=== PATIENT | female | born 1955 | race Caucasian/White ===

== ENCOUNTER 2019-01-15 19:52 | Emergency (ER) | payer SELFPAY ==
[2019-01-15] MEDS ORDERED: DEXAMETHASONE 4 MG/ML VIAL ONE (21:06)
--- NOTE | 2019-01-15 21:10 | EDPHYS ---
Physician Documentation [facility] Name: Giovanni Isaac Age: 63 yrs Sex: Female : 1955 Arrival Date: 01/15/2019 Time: 19:55 Bed 11 Private MD: Clint Edge S ED Physician Blas Dolan HPI: 01/15 20:44 This 63 yrs old Female presents to ER via Ambulatory with complaints of Rash. jmm 20:44 The patient's rash thought to be caused by Dermatitis. Onset: The symptoms/episode jmm began/occurred gradually, 5 day(s) ago. Associated signs and symptoms: Pertinent positives: itching, Pertinent negatives: difficulty breathing, fever, swelling of lips, swelling of throat, swelling of tongue, vomiting. This is a 63 year old female with a history of dm that presents to the ED with complaints of rash due to poison oak. Patient has used OTD medication with no relief. Denies shortness of breath, vomiting, swelling. . Historical: - Allergies: 20:18 iv dye iodine; aj1 - Home Meds: 20:18 levothyroxine 112 mcg tab once daily [Active]; losartan 25 mg Oral tab 1 tab once daily aj1 [Active]; metformin 1,000 mg Oral tab 1 tab 2 times per day [Active]; hydrochlorothiazide Oral [Active]; - PMHx: 20:18 Diabetes - NIDDM; Hypertension; Hypothyroidism; aj1 - Immunization history:: Flu vaccine is not up to date. - Social history:: Smoking status: Patient/guardian denies using tobacco. - Ebola Screening: : Patient denies travel to an Ebola-affected area in the 21 days before illness onset. ROS: 20:44 Constitutional: Negative for fever, chills, and weight loss, Cardiovascular: Negative jmm for chest pain, palpitations, and edema, Respiratory: Negative for shortness of breath, cough, wheezing, and pleuritic chest pain. 20:44 Skin: Positive for rash. 20:44 All other systems are negative. Exam: 20:44 Head/Face: atraumatic. Eyes: EOMI, no conjunctival erythema appreciated ENT: Moist jmm Mucus Membranes Neck: Trachea midline, Supple Chest/axilla: Normal chest wall appearance and motion. Cardiovascular: Regular rate and rhythm. No edema appreciated Respiratory: Normal respirations, no respiratory distress appreciated Abdomen/GI: Non distended, soft Back: Normal ROM 20:44 MS/ Extremity: Moves all extremities, no obvious deformities appreciated, no edema noted to the lower extremities Neuro: Awake and alert, normal gait Psych: Behavior is normal, Mood is normal, Patient is cooperative and pleasant 20:44 Constitutional: The patient appears in no acute distress, alert, awake. 20:44 Skin: erythema noted to the forearms, chest consistent with dermatitis. no induration is apprciated. Vital Signs: 20:18 BP 114 / 57; Pulse 83; Resp 18; Temp 97.1(TE); Pulse Ox 99% on R/A; Weight 67.59 kg; aj1 Height 5 ft. 6 in. (167.64 cm) (R); Pain 0/10; 20:18 Body Mass Index 24.05 (67.59 kg, 167.64 cm) aj1 MDM: 20:44 Patient medically screened. [facility] 21:09 Data reviewed: vital signs, nurses notes. Counseling: I had a detailed discussion with santosh the patient and/or guardian regarding: the historical points, exam findings, and any diagnostic results supporting the discharge/admit diagnosis, the need for outpatient follow up, to return to the emergency department if symptoms worsen or persist or if there are any questions or concerns that arise at home. ED course: Symptoms appear consistent with contact dermatitis. I discussed risks/benfits of steroids with the patient. Patient elects for steroids and will closely monitor blood glucose. Patient is otherwise given strict return precautions. Patient understood and agrees with the plan of care. . Administered Medications: 20:55 CANCELLED (change in dose): Dexamethasone 10 mg IM once 21:08 Drug: Dexamethasone 8 mg Route: IM; Site: right gluteus; 21:20 Follow up: Response: No adverse reaction; Marked relief of symptoms Disposition: 01/15/19 21:10 Discharged to Home. Impression: Dermatitis, unspecified. - Condition is Stable. - Discharge Instructions: Contact Dermatitis. - Prescriptions for Hydroxyzine HCl 25 mg Oral Tablet - take 1 tablet by ORAL route every 6 hours As needed; 12 tablet. Medrol (Tanner) 4 mg Oral Tablets, Dose Pack - take 1 tablet by ORAL route as directed - follow package instructions; 1 packet. - Medication Reconciliation Form, Thank You Letter, Antibiotic Education, Prescription Opioid Use form. - Follow up: Clint Edge MD; When: 2 - 3 days; Reason: Recheck today's complaints, Continuance of care, Re-evaluation by your physician. Addendum: 01/18/2019 19:34 Co-signature as Attending Physician, Blas Dolan MD. g s Signatures: Veronica Johnson, RN RN aj1 Singh Oquendo PA PA jmm Chretien, Felicia, RN RN Blas Dolan MD MD Corrections: (The following items were deleted from the chart) 01/15 20:55 20:44 Dexamethasone 10 mg IM once ordered. [facility] 21:21 21:10 01/15/2019 21:10 Discharged to Home. Impression: Dermatitis, unspecified. fc Condition is Stable. Forms are Medication Reconciliation Form, Thank You Letter, Antibiotic Education, Prescription Opioid Use. Follow up: Clint Edge; When: 2 - 3 days; Reason: Recheck today's complaints, Continuance of care, Re-evaluation by your physician. [facility]
--- NOTE | 2019-01-15 21:10 | ER ---
Nurse's Notes [facility] Name: Giovanni Isaac Age: 63 yrs Sex: Female : 1955 Arrival Date: 01/15/2019 Time: 19:55 Bed 11 Private MD: Clint Edge S Diagnosis: Dermatitis, unspecified Presentation: 01/15 20:16 Presenting complaint: Patient states: She got into poison oak on Saturday, she washed aj1 with Zanafel but the rash has just spread and gotten worse. Reports red, itchy rash to face, neck, back, chest, abdomen, bilateral arms and bilateral legs. Transition of care: patient was not received from another setting of care. Onset of symptoms was January 2019. Risk Assessment: Do you want to hurt yourself or someone else? Patient reports no desire to harm self or others. Initial Sepsis Screen: Does the patient meet any 2 criteria? No. Patient's initial sepsis screen is negative. Does the patient have a suspected source of infection? No. Patient's initial sepsis screen is negative. Care prior to arrival: None. 20:16 Method Of Arrival: Ambulatory [facility] 20:16 Acuity: ADEN 4 aj1 Triage Assessment: 20:18 General: Appears in no apparent distress. comfortable, Behavior is calm, cooperative, aj1 appropriate for age. Pain: Denies pain. Neuro: Level of Consciousness is awake, alert, obeys commands, Oriented to person, place, time, situation. Cardiovascular: Patient's skin is warm and dry. Respiratory: Airway is patent Respiratory effort is even, unlabored, Respiratory pattern is regular, symmetrical. Derm: Rash noted that is itchy, red. Historical: - Allergies: 20:18 iv dye iodine; aj1 - Home Meds: 20:18 levothyroxine 112 mcg tab once daily [Active]; losartan 25 mg Oral tab 1 tab once daily aj1 [Active]; metformin 1,000 mg Oral tab 1 tab 2 times per day [Active]; hydrochlorothiazide Oral [Active]; - PMHx: 20:18 Diabetes - NIDDM; Hypertension; Hypothyroidism; aj1 - Immunization history:: Flu vaccine is not up to date. - Social history:: Smoking status: Patient/guardian denies using tobacco. - Ebola Screening: : Patient denies travel to an Ebola-affected area in the 21 days before illness onset. Screenin:30 Abuse screen: Denies threats or abuse. Nutritional screening: No deficits noted. fc Tuberculosis screening: No symptoms or risk factors identified. Fall Risk None identified. Assessment: 20:30 General: Appears uncomfortable, Behavior is calm, cooperative, appropriate for age. fc Pain: Denies pain. Neuro: Level of Consciousness is awake, alert, obeys commands, Oriented to person, place, time, situation, Appropriate for age. Cardiovascular: No deficits noted. Respiratory: Denies cough, shortness of breath. GI: No deficits noted. : No deficits noted. EENT: No signs and/or symptoms were reported regarding the EENT system. Derm: Skin is pink, warm \T\ dry. Rash noted that is itchy, red, raised, on all over body. Musculoskeletal: Circulation, motion, and sensation intact. Capillary refill < 3 seconds, Range of motion: intact in all extremities. 20:44 Reassessment: Singh FELICIANO in to see and examine pt. Vital Signs: 20:18 BP 114 / 57; Pulse 83; Resp 18; Temp 97.1(TE); Pulse Ox 99% on R/A; Weight 67.59 kg; aj1 Height 5 ft. 6 in. (167.64 cm) (R); Pain 0/10; 20:18 Body Mass Index 24.05 (67.59 kg, 167.64 cm) aj1 ED Course: 19:55 Patient arrived in ED. es 19:55 Clint Edge MD is Private Physician. es 20:17 Triage completed. aj1 20:18 Arm band placed on Patient placed in waiting room, Patient notified of wait time. aj 20:28 Singh Oquendo PA is PHCP. [facility] 20:28 Blas Dolan MD is Attending Physician. [facility] 20:30 Patient has correct armband on for positive identification. Bed in low position. Call fc light in reach. 20:30 No provider procedures requiring assistance completed. Patient did not have IV access fc during this emergency room visit. 21:10 Clint Edge MD is Referral Physician. [facility] Administered Medications: 20:55 CANCELLED (change in dose): Dexamethasone 10 mg IM once fc 21:08 Drug: Dexamethasone 8 mg Route: IM; Site: right gluteus; fc 21:20 Follow up: Response: No adverse reaction; Marked relief of symptoms fc Outcome: 21:10 Discharge ordered by MD. frost 21:20 Discharged to home ambulatory. 21:20 Condition: good 21:20 Discharge instructions given to patient, Instructed on discharge instructions, follow up and referral plans. no drinking with medication, no driving heavy equipment, medication usage, Demonstrated understanding of instructions, follow-up care, medications, Prescriptions given X 2. 21:21 Patient left the ED. fc Signatures: Veronica Johnson RN RN aj1 Singh Oquendo PA PA jmm Salyer, Edna es Chretien, Felicia, RN RN
[2019-01-15 23:10] VITALS: BP 114/57; TEMP 97.1; O2SAT 99
== END 2019-01-15 21:21 | disposition home or self-care (01) ==
LOC: ER 19:52
DX: L30.9 Dermatitis, unspecified (principal); I10 Essential (primary) hypertension; E03.9 Hypothyroidism, unspecified; E11.9 Type 2 diabetes mellitus without complications; Z91.041 Radiographic dye allergy status
CPT/HCPCS: 96372; 99283